=== PATIENT | female | born 1970 | race African-American/Black ===

== ENCOUNTER 2018-04-01 11:45 | Emergency (ER) | payer SELFPAY ==
[2018-04-01 12:04] VITALS: BMI 25.4
[2018-04-01] MEDS ORDERED: ONDANSETRON 4 MG/2 ML VIAL IVPB ONE (12:29)
--- NOTE | 2018-04-01 12:46 | PDOC ---
History of Present Illness - General Chief Complaint: Weakness Stated Complaint: NAUSEA, HEADACHE Time Seen by Provider: 04/01/18 12:29 History Source: Patient Exam Limitations: No Limitations - History of Present Illness Initial Comments: 04/01/18 12:45 CHIEF COMPLAINT: Vomiting HISTORY OF PRESENT ILLNESS: This is a 47-year-old female with a history of migraine headaches (none for several years) who presents ambulatory to the ER accompanied by her complaining of vomiting, diarrhea, and headaches. She reports generalized headache with photophobia. She reports multiple episodes of vomiting and 2 episodes of nonbloody diarrhea. She denies fevers/ chills, abdominal pain, dysuria, or any other symptoms. She denies travel, sick contacts, and recent restaurant patronage. Vital signs on arrival are unremarkable. REVIEW OF SYSTEMS: GENERAL/CONSTITUTIONAL: No fever or chills. No weakness. No weight change. Generalized weakness. HEAD, EYES, EARS, NOSE AND THROAT: No change in vision. No ear pain or discharge. No sore throat. CARDIOVASCULAR: No chest pain or palpitations. RESPIRATORY: No cough, wheezing, or shortness of breath. GASTROINTESTINAL: Nausea/vomiting, diarrhea. No abdominal pain. GENITOURINARY: No dysuria, frequency, or change in urination. MUSCULOSKELETAL: No joint or muscle swelling or pain. No neck or back pain. SKIN: No rash or easy bruising. NEUROLOGIC: Generalized headache, photophobia. No vertigo, loss of consciousness , or loss of sensation. PSYCHIATRIC: No depression or anxiety. ENDOCRINE: No increased thirst. No abnormal weight change. HEMATOLOGIC/LYMPHATIC: No anemia, easy bleeding, or history of blood clots. ALLERGIC/IMMUNOLOGIC: No hives or skin allergy. No latex allergy. PHYSICAL EXAM: GENERAL: The patient is awake, alert, and fully oriented, in distress secondary to pain and nausea. HEAD: Normal with no signs of trauma. ENT: Pupils equal, round and reactive to light, extraocular movements intact, sclera anicteric, conjunctiva clear. Neck supple. LUNGS: Clear to auscultation bilaterally. Normal excursion. No respiratory distress or use of accessory muscles. CV: RRR, S1/S2, no MRG. Cap refill < 2 sec. ABDOMEN: Soft, non-distended, non-tender. EXTREMITIES: Normal range of motion, no edema. NEUROLOGICAL: Normal speech. CN II-XII grossly intact. Gait deferred. PSYCH: Normal mood, normal affect. SKIN: Warm, dry, normal turgor, no rashes or lesions noted. 9 Past History - Past Medical History Allergies/Adverse Reactions: Allergies Allergy/AdvReac Type Severity Reaction Status Date / Time No Known Allergies Allergy Verified 04/01/18 11:57 Home Medications: Ambulatory Orders Sertraline HCl [Zoloft] 200 mg PO DAILY 02/09/15 Amoxicillin - [Amoxicillin 500mg Capsule -] 100 mg PO BID 06/17/15 Clarithromycin 500 mg PO BID 06/17/15 Diphenhydramine HCl [Benadryl -] 25 mg PO Q6H PRN #28 capsule 06/17/15 Epinephrine [Epipen 2-Primo] 0.3 mg IJ ASDIR PRN #1 kit 06/17/15 Omeprazole [Prilosec] 40 mg PO DAILY 06/17/15 Prednisone [Deltasone] 60 mg PO DAILY #12 tablet 06/17/15 Ranitidine HCl [Zantac] 150 mg PO BID PRN #20 tablet 06/17/15 Anemia: No Cardiac Disorders: Yes (cardiac arrhythmias, "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) CVA: No COPD: No Diabetes: No HTN: No Hypercholesterolemia: No Psychiatric Problems: Yes (MAJOR DEPRESIVE DISORDER,ANXIETY PTSD,) Other medical history: FIBROMYALGIA - Surgical History Cholecystectomy: Yes - Reproductive History Tubal Ligation: Yes - Suicide/Smoking/Psychosocial Hx Smoking Status: No Smoking History: Never smoked Have you smoked in the past 12 months: No Number of Cigarettes Smoked Daily: 0 Hx Alcohol Use: No Drug/Substance Use Hx: No Substance Use Type: None Hx Substance Use Treatment: No *Physical Exam - Vital Signs Last Vital Signs Temp Pulse Resp BP Pulse Ox 98.3 F 79 18 143/79 99 04/01/18 11:57 04/01/18 11:57 04/01/18 11:57 04/01/18 11:57 04/01/18 11:57 Moderate Sedation - Procedure Monitoring Vital Signs: Procedure Monitoring Vital Signs Temperature 98.3 F 04/01/18 11:57 Pulse Rate 79 04/01/18 11:57 Respiratory Rate 18 04/01/18 11:57 Blood Pressure 143/79 04/01/18 11:57 O2 Sat by Pulse Oximetry (%) 99 04/01/18 11:57 ED Treatment Course - LABORATORY CBC & Chemistry Diagram: 04/01/18 12:50 04/01/18 12:50 Medical Decision Making - Medical Decision Making 04/01/18 13:30 a/P: 47-year-old female with multiple symptoms including headache, nausea/ vomiting, and diarrhea. Differential includes but is not limited to migraine headache, gastroenteritis or other viral syndrome. 1. Labs including CBC, CMP, serum , UA 2. IV fluids 3. Reglan/Benadryl for headache and nausea 4. Re-assess 04/01/18 14:35 Nausea improved, headache persistent. Will add Ofirmev 1g IVPB. 04/01/18 18:40 Headache persistent following Ofirmev (patient remains doubled over in pain, tearful). Will obtain CT brain, add Toradol if neg.
[2018-04-01] MEDS ORDERED: METOCLOPRAMIDE HCL INJECTION 10 MG/2 ML VIAL IVPUSH ONE (12:49)
[2018-04-01] MEDS ORDERED: METOCLOPRAMIDE HCL INJECTION 10 MG/2 ML VIAL ONE (12:57)
[2018-04-01] MEDS ORDERED: SODIUM CHLORIDE 1,000 ML IV SCH (13:00)
[2018-04-01 13:03] LABS: BASO % 0.3 % (0-2.0); HEMATOCRIT 39.5 % (32.4-45.2); LYMPH % 9.9 % (8-40); MCH 30.7 pg (25.7-33.7); MEAN PLT VOLUME 7.3 fl (7.5-11.1); NEUT % 87.8 % (42.8-82.8); PLATELET COUNT 327 K/MM3 (134-434); RBC 4.24 M/mm3 (3.60-5.2); RDW 12.9 % (11.6-15.6)
[2018-04-01 13:27] LABS: ALBUMIN 4.1 g/dl (3.4-5.0); ALK PHOS 54 U/L (45-117); ANION GAP 7 MMOL/L (8-16); BILIRUBIN,TOTAL 0.6 mg/dL (0.2-1); BLOOD UREA NITROGEN 12 mg/dL (7-18); CALCIUM 9.5 mg/dL (8.5-10.1); CHLORIDE 105 mmol/L (98-107); CO2 26 mmol/L (21-32); CREATININE 0.7 mg/dL (0.55-1.3); GLUCOSE,RANDOM 107 mg/dL (74-106); SGOT/AST 25 U/L (15-37); SGPT/ALT 27 U/L (13-61); SODIUM 138 mmol/L (136-145); TOT PROT 7.6 g/dl (6.4-8.2)
[2018-04-01] MEDS ORDERED: ACETAMINOPHEN 1000 MG/100 ML VIAL (NON FORMULARY) IVPB ONE (14:32)
[2018-04-01] MEDS ORDERED: ACETAMINOPHEN INJECTION 100 ML IVPB ONE (15:51)
[2018-04-01] MEDS ORDERED: FAMOTIDINE 20 MG/50 ML IVPB 20 MG in PREMIX 50 IVPB ONE (16:32)
[2018-04-01] MEDS ORDERED: KETOROLAC TROMETHAMINE 30 MG/1 ML VIAL IVPUSH ONE (16:33)
[2018-04-01 18:03] LABS: URINE APPEARANCE CLEAR; URINE BILIRUBIN NEGATIVE (<2.0 mg/dL); URINE COLOR YELLOW; URINE GLUCOSE (UA) NEGATIVE (NEGATIVE); URINE KETONE 1+ (NEGATIVE); URINE LEUK ESTERASE NEGATIVE (NEGATIVE); URINE NITRITE NEGATIVE (NEGATIVE); URINE PROTEIN NEGATIVE (NEGATIVE); URINE UROBILINOGEN NEGATIVE mg/dL (0.2-1.0)
[2018-04-01] MEDS ORDERED: FAMOTIDINE 20 MG/50 ML IVPB 20 MG/50 ML MG IVPB ONE (18:17)
[2018-04-01] MEDS ORDERED: KETOROLAC TROMETHAMINE 30 MG/1 ML VIAL ONE (18:17)
[2018-04-01] MEDS ORDERED: SODIUM CHLORIDE 1,000 ML IV STA (19:03)
--- NOTE | 2018-04-01 19:49 | PDOC ---
*Physical Exam - Vital Signs Last Vital Signs Temp Pulse Resp BP Pulse Ox 98.3 F 79 18 143/79 99 04/01/18 11:57 04/01/18 11:57 04/01/18 11:57 04/01/18 11:57 04/01/18 11:57 - Physical Exam General Appearance: Yes: Appropriately Dressed. No: Apparent Distress HEENT: positive: Normal ENT Inspection Respiratory/Chest: positive: Lungs Clear, Normal Breath Sounds. negative: Respiratory Distress, Accessory Muscle Use Cardiovascular: positive: Regular Rhythm, Regular Rate, S1, S2. negative: Edema , Murmur Neurologic: positive: legal instructor II-XII NML intact, Fully Oriented, Alert, Normal Mood/ Affect, Motor Strength 07/20 ED Treatment Course - LABORATORY CBC & Chemistry Diagram: 04/01/18 12:50 04/01/18 12:50 - ADDITIONAL ORDERS Additional order review: Laboratory Results 04/01/18 04/01/18 04/01/18 17:38 12:50 12:50 Sodium 138 Potassium 4.0 Chloride 105 Carbon Dioxide 26 Anion Gap 7 L BUN 12 Creatinine 0.7 Creat Clearance w eGFR > 60 Random Glucose 107 H Calcium 9.5 Total Bilirubin 0.6 AST 25 ALT 27 Alkaline Phosphatase 54 Total Protein 7.6 Albumin 4.1 Serum , Qual Negative Urine Color Yellow Urine Appearance Clear Urine pH 7.0 Ur Specific [place] 1.023 Urine Protein Negative Urine Glucose (UA) Negative Urine Ketones 1+ H Urine Blood Negative Urine Nitrite Negative Urine Bilirubin Negative Urine Urobilinogen Negative Ur Leukocyte Esterase Negative 04/01/18 12:50 RBC 4.24 MCV 93.0 MCHC 33.0 RDW 12.9 MPV 7.3 L Neutrophils % 87.8 H D Lymphocytes % 9.9 D Monocytes % 2.0 L Eosinophils % 0.0 D Basophils % 0.3 - Medications Given in the ED: ED Medications Discontinued Medications Generic Name Dose Route Start Last Admin Trade Name Freq PRN Reason Stop Dose Admin Acetaminophen 1,000 mg 04/01/18 14:32 04/01/18 15:56 Ofirmev Injection - IVPB 04/01/18 14:33 1,000 mg ONCE ONE Administration Diphenhydramine HCl 12.5 mg 04/01/18 12:49 04/01/18 13:01 Benadryl Injection - IVPUSH 04/01/18 12:50 12.5 mg ONCE ONE Administration Famotidine/Sodium Chloride 20 50 mls @ 100 mls/hr 04/01/18 16:32 04/01/18 18: 18 mg/ Miscellaneous IVPB 04/01/18 17:01 100 mls/hr ONCE ONE Administration Ketorolac Tromethamine 30 mg 04/01/18 16:33 04/01/18 18:18 Toradol Injection - IVPUSH 04/01/18 16:34 30 mg ONCE ONE Administration Metoclopramide HCl 10 mg 04/01/18 12:49 04/01/18 13:01 Reglan Injection - IVPUSH 04/01/18 12:50 10 mg ONCE ONE Administration Ondansetron HCl 8 mg 04/01/18 12:29 04/01/18 14:58 Zofran Injection IVPB 04/01/18 12:30 Not Given ONCE ONE Progress Note - Progress Note Progress Note: Received signout from nurse practitioner Marie. Briefly this is a 47-year-old woman with history of migraines here for evaluation of headaches, vomiting and diarrhea. Patient reports having some photophobia which is been with her headache. Patient has received Reglan, Benadryl, normal saline and IV Tylenol prior to signout. Patient is currently pending CT of the head and Toradol. Medical Decision Making - Medical Decision Making 04/01/18 20:08 CT of the head as read by Dr. Goff: No CT evidence of acute age cranial pathology. There has been no definite interval change in comparison to a prior CT exam of . Patient currently with a normal neurologic exam and pain level of 3/10. Patient states this is an acceptable level of pain. I will discharge the patient home to follow-up with her primary doctor and given referral for neurologist. I discussed the physical exam findings, ancillary test results and final diagnoses with the patient. I answered all of the patient's questions. The patient was satisfied with the care received and felt comfortable with the discharge plan and treatment plan. The patient will call their primary care physician within 24 hours to arrange follow-up and will return to the Emergency Department with any new, persistent or worsening symptoms. *DC/Admit/Observation/Transfer Diagnosis at time of Disposition: Migraines Qualifiers: Migraine type: without aura Status migrainosus presence: without status migrainosus Intractability: not intractable Qualified Code(s): G43.009 - Migraine without aura, not intractable, without status migrainosus - Discharge Dispostion Disposition: HOME Condition at time of disposition: Stable Decision to Admit order: No - Referrals Referrals: Romero Kirby DO [Staff Physician] - - Patient Instructions Additional Instructions: Take Tylenol or Motrin as needed for headaches. Keep a diary of all food you eat and activities performed prior to headaches starting. Make an appointment with her primary doctor for reevaluation within the next week. Return to emergency department for worsening headache, blurry vision, dizziness , nausea, vomiting or any other concerns. Thank you very much for for choosing us to provide emergent health care needs. - Post Discharge Activity
[2018-04-01 20:52] VITALS: BP 136/78; PULSE 89; TEMP 98.6
== END 2018-04-01 20:52 | disposition home or self-care (01) ==
LOC: JER 11:45
PROC: 3E0337Z Introduction of Electrolytic and Water Balance Substance into Peripheral Vein, Percutaneous Approach (ICD-10-PCS; principal; 2018-04-01)
PROC: 3E033GC Introduction of Other Therapeutic Substance into Peripheral Vein, Percutaneous Approach (ICD-10-PCS; 2018-04-01)
PROC: 3E033GC Introduction of Other Therapeutic Substance into Peripheral Vein, Percutaneous Approach (ICD-10-PCS; 2018-04-01)
PROC: 3E033GC Introduction of Other Therapeutic Substance into Peripheral Vein, Percutaneous Approach (ICD-10-PCS; 2018-04-01)
PROC: 3E033NZ Introduction of Analgesics, Hypnotics, Sedatives into Peripheral Vein, Percutaneous Approach (ICD-10-PCS; 2018-04-01)
PROC: 3E0333Z Introduction of Anti-inflammatory into Peripheral Vein, Percutaneous Approach (ICD-10-PCS; 2018-04-01)
DX: G43.009 Migraine without aura, not intractable, without status migrainosus (principal); F33.9 Major depressive disorder, recurrent, unspecified; F41.9 Anxiety disorder, unspecified; F43.10 Post-traumatic stress disorder, unspecified; M79.7 Fibromyalgia; Z86.79 Personal history of other diseases of the circulatory system
CPT/HCPCS: 36415; 70450-TC; 80053; 81003; 84703; 85025; 99282-25; J0131; J7030